=== PATIENT | male | born 1985 | race African-American/Black ===

== ENCOUNTER 2022-05-08 04:28 | Emergency (ER) | payer BC ==
[2022-05-08] MEDS ORDERED: LIDOCAINE 1% 20 ML MDV ONE (04:42)
[2022-05-08] MEDS ORDERED: TETANUS & DIPHTHERIA TOX,ADULT 0.5 ML VIAL ONE (04:49)
[2022-05-08] MEDS ORDERED: CEPHALEXIN 250 MG CAP ONE (05:04)
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
--- NOTE | 2022-05-08 05:04 | EDPHYS ---
Physician Documentation [facility] Name: Guy Rose Age: 37 yrs Sex: Male : 1985 Arrival Date: 05/08/2022 Time: 04:29 Bed 18 Private MD: ED Physician Malcolm Hickey HPI: 05/08 04:56 This 37 yrs old Black Male presents to ER via Ambulatory with complaints of Laceration, david - finger. 04:56 The patient or guardian reports decreased range of motion, a laceration, clean, 1.25 david cm(s), pain. The complaints affect the PIP of right ring finger. Context: The problem was sustained at an unknown location. Onset: The symptoms/episode began/occurred just prior to arrival. Modifying factors: The symptoms are alleviated by elevation, the symptoms are aggravated by movement. Associated signs and symptoms: The patient has no apparent associated signs or symptoms. Severity of symptoms: At their worst the symptoms were mild, in the emergency department the symptoms are unchanged. The patient has not experienced similar symptoms in the past. Historical: - Allergies: 04:44 No Known Allergies; lg3 - Home Meds: 04:44 None [Active]; lg3 - PMHx: 04:44 None; lg3 - PSHx: 04:44 None; lg3 - Immunization history:: Flu vaccine is not up to date. - Social history:: Smoking status: Patient denies any tobacco usage or history of. - Family history:: not pertinent. ROS: 04:56 Constitutional: Negative for fever, chills, and weight loss, Eyes: Negative for injury, david pain, redness, and discharge, ENT: Negative for injury, pain, and discharge, Neck: Negative for injury, pain, and swelling, Cardiovascular: Negative for chest pain, palpitations, and edema, Respiratory: Negative for shortness of breath, cough, wheezing, and pleuritic chest pain, Abdomen/GI: Negative for abdominal pain, nausea, vomiting, diarrhea, and constipation, Back: Negative for injury and pain, : Negative for injury, bleeding, discharge, and swelling, Skin: Negative for injury, rash, and discoloration, Neuro: Negative for headache, weakness, numbness, tingling, and seizure. 04:56 MS/extremity: Positive for decreased range of motion, pain, of the dorsal aspect of middle phalanx of right middle finger. Exam: 04:56 Constitutional: This is a well developed, well nourished patient who is awake, alert, dvaid and in no acute distress. Head/Face: Normocephalic, atraumatic. Eyes: Pupils equal round and reactive to light, extra-ocular motions intact. Lids and lashes normal. Conjunctiva and sclera are non-icteric and not injected. Cornea within normal limits. Periorbital areas with no swelling, redness, or edema. ENT: Nares patent. No nasal discharge, no septal abnormalities noted. Tympanic membranes are normal and external auditory canals are clear. Oropharynx with no redness, swelling, or masses, exudates, or evidence of obstruction, uvula midline. Mucous membranes moist. Neck: Trachea midline, no thyromegaly or masses palpated, and no cervical lymphadenopathy. Supple, full range of motion without nuchal rigidity, or vertebral point tenderness. No Meningismus. Chest/axilla: Normal chest wall appearance and motion. Nontender with no deformity. No lesions are appreciated. Cardiovascular: Regular rate and rhythm with a normal S1 and S2. No gallops, murmurs, or rubs. Normal PMI, no JVD. No pulse deficits. Respiratory: Lungs have equal breath sounds bilaterally, clear to auscultation and percussion. No rales, rhonchi or wheezes noted. No increased work of breathing, no retractions or nasal flaring. Abdomen/GI: Soft, non-tender, with normal bowel sounds. No distension or tympany. No guarding or rebound. No evidence of tenderness throughout. Back: No spinal tenderness. No costovertebral tenderness. Full range of motion. Skin: Warm, dry with normal turgor. Normal color with no rashes, no lesions, and no evidence of cellulitis. Neuro: Awake and alert, GCS 15, oriented to person, place, time, and situation. Cranial nerves II-XII grossly intact. Motor strength 5/5 in all extremities. Sensory grossly intact. Cerebellar exam normal. Normal gait. Psych: Awake, alert, with orientation to person, place and time. Behavior, mood, and affect are within normal limits. 04:56 Musculoskeletal/extremity: ROM: intact in all extremities, full active range of motion, full passive range of motion, Circulation is intact in all extremities. 04:56 Skin: injury, laceration(s), the wound is approximately 1.25 cm(s), with a depth of 0.25 cm(s), of the dorsal aspect of middle phalanx of right middle finger. Vital Signs: 04:40 BP 115 / 65; Pulse 110; Resp 18; Temp 98.8; Pulse Ox 98% on R/A; Weight 85.73 kg; lg3 Height 5 ft. 7 in. (170.18 cm); Pain 0/10; 04:40 Body Mass Index 29.60 (85.73 kg, 170.18 cm) lg3 Laceration: 04:56 Wound Repair of 1.2cm ( 0.5in ) subcutaneous laceration to dorsal aspect of middle david phalanx of right middle finger. Linear shaped.. Distal neuro/vascular/tendon intact. Anesthesia: Local anesthetic administered with 5 mls of 1% lidocaine. Wound prep: Simple cleansing by me. Skin closed with 4 5-0 Prolene using interrupted sutures and sterile technique. Dressed with Neosporin, non-adherent dressing. Patient tolerated well. MDM: 04:33 Patient medically screened. [facility] 05:01 Differential diagnosis: open fracture, contusion, abrasion. Data reviewed: vital signs, [facility] nurses notes. Data interpreted: engine monitor: rate is 110 beats/min, rhythm is regular, Pulse oximetry: on room air is 98 %. Counseling: I had a detailed discussion with the patient and/or guardian regarding: the historical points, exam findings, and any diagnostic results supporting the discharge/admit diagnosis, the need for outpatient follow up, for definitive care, a family practitioner, a hand specialist. 05/08 04:48 Order name: Dressing - Wound; Complete Time: 04:48 3 05/08 04:48 Order name: Gloves, Sterile; Complete Time: 04:48 3 05/08 04:48 Order name: Setup Suture Tray; Complete Time: 04:48 lg3 Administered Medications: 04:46 Drug: Lidocaine (1 %) 5 ml {Note: by provider at bedside.} Volume: 20 ml; Route: lg3 Infiltration; 04:46 Drug: Tetanus Toxoid,Adsorbed 0.5 ml {Candy Polisher: [employer]. Exp: 01/22/2024. Lot lg3 #: [id number]. } Route: IM; Site: left deltoid; 05:07 Follow up: Response: (VIS) Vaccine information sheet provided today. Questions and/or lg3 concerns addressed. VIS edition date: Jun 04, 2021.; No adverse reaction 05:07 Drug: KeFLEX (cephalexin) 500 mg Route: PO; lg3 05:07 Follow up: Response: No adverse reaction lg3 Disposition Summary: 05/08/22 05:03 Discharge Ordered Location: Home [facility] Problem: new david Symptoms: have improved david Condition: Stable david Diagnosis - Laceration without foreign body of right hand, initial encounter - RIGHT MIDDLE david FINGER LACERATION Followup: david - With: Private Physician - When: 2 - 3 days - Reason: Recheck today's complaints, Continuance of care, Re-evaluation by your physician Discharge Instructions: - Discharge Summary Sheet david - Laceration Care, Adult david - Laceration Care, Adult, [id number] Forms: - Medication Reconciliation Form david - Thank You Letter david - Antibiotic Education david - Prescription Opioid Use [facility] Prescriptions: - Cephalexin 500 mg Oral Capsule - take 1 capsule by ORAL route every 6 hours for 7 days; 28 capsule; Refills: 0, david Product Selection Permitted Signatures: Malcolm Hickey MD MD cha Gibson, Lacie RN RN lg3
[2022-05-08 05:14] VITALS: BP 115/65; TEMP 98.8; O2SAT 98
== END 2022-05-08 05:09 | disposition home or self-care (01) ==
LOC: ER 04:28
PROC: 0JQJ0ZZ Repair Right Hand Subcutaneous Tissue and Fascia, Open Approach (ICD-10-PCS; principal; 2022-05-08)
DX: S61.212A Laceration without foreign body of right middle finger without damage to nail, initial encounter (principal); Z23 Encounter for immunization
CPT/HCPCS: 90471; 90714; 99284

== ENCOUNTER 2022-05-17 12:41 | Emergency (ER) | payer BC ==
--- NOTE | 2022-05-17 13:12 | EDPHYS ---
Physician Documentation [facility] Name: Guy Rose Age: 37 yrs Sex: Male : 1985 Arrival Date: 05/17/2022 Time: 12:41 Bed Waiting Private MD: ED Physician Marshal Kenyon Historical: - Allergies: 05/17 13:06 No Known Allergies; hb Vital Signs: 13:05 BP 122 / 89; Pulse 68; Resp 16; Temp 98; Pulse Ox 97% ; Weight 86.18 kg; Height 5 ft. 7 hb in. (170.18 cm); Pain 0/10; 13:05 Body Mass Index 29.76 (86.18 kg, 170.18 cm) hb MDM: 13:10 Patient medically screened. jmm 13:11 Data reviewed: vital signs, nurses notes. jmm Administered Medications: No medications were administered Disposition: 14:11 Co-signature as Attending Physician, Marshal Kenyon DO I was immediately available on-site ms3 in the Emergency Department for consultation in the care of the patient. . Disposition Summary: 05/17/22 13:11 Discharge Ordered Location: Home jmm Condition: Stable jmm Diagnosis - Encounter for removal of sutures jmm Followup: jmm - With: Private Physician - When: As needed - Reason: Recheck today's complaints, Continuance of care, Re-evaluation by your physician Discharge Instructions: - Discharge Summary Sheet jm - Suture Removal, Care After jmm Forms: - Medication Reconciliation Form jmm - Thank You Letter jmm - Antibiotic Education jmm - Work release form jmm - Prescription Opioid Use jm Signatures: Thomas Quinones PA PA jmm Baxter, Heather, RN RN Marshal Kenyon DO DO ms3
--- NOTE | 2022-05-17 13:12 | ER ---
Nurse's Notes [facility] Name: Guy Rose Age: 37 yrs Sex: Male : 1985 Arrival Date: 05/17/2022 Time: 12:41 Bed Waiting Private MD: Diagnosis: Encounter for removal of sutures Presentation: 05/17 13:05 Chief complaint: Right index sutures 10 days ago, here for removal. Coronavirus screen: hb At this time, the client does not indicate any symptoms associated with coronavirus-19. Ebola Screen: No symptoms or risks identified at this time. Risk Assessment: Do you want to hurt yourself or someone else? Patient reports no desire to harm self or others. Onset of symptoms was May 17, 2022. 13:05 Method Of Arrival: Ambulatory hb 13:05 Acuity: EDMOND 4 hb Triage Assessment: 13:06 General: Appears in no apparent distress. Behavior is calm, cooperative. Pain: Denies hb pain. Historical: - Allergies: 13:06 No Known Allergies; hb Vital Signs: 13:05 BP 122 / 89; Pulse 68; Resp 16; Temp 98; Pulse Ox 97% ; Weight 86.18 kg; Height 5 ft. 7 hb in. (170.18 cm); Pain 0/10; 13:05 Body Mass Index 29.76 (86.18 kg, 170.18 cm) hb ED Course: 12:41 Patient arrived in ED. as 12:43 Marshal Kenyon DO is Attending Physician. ms3 13:06 Triage completed. hb 13:06 Arm band placed on. hb 13:10 Thomas Quinones [facility] is [facility] jeanie Administered Medications: No medications were administered Outcome: 13:11 Discharge ordered by MD. ware 13:36 Patient left the ED. hb Signatures: Thomas Quinones PA PA jmm Martinez, Amelia as Baxter, Heather, NORM RN Marshal Kenyon DO DO ms3
[2022-05-17 13:48] VITALS: BP 122/89; TEMP 98; O2SAT 97
--- OUTSIDE RECORDS SUMMARY | 2022-05-19 14:15 | XMS REPORT | Continuity of Care Document ---
:1985 Author Organization [facility] t Address [address] [place] [address] Care Team Providers Name Role Phone [email or web address] Attending Clinician Unavailable Problems Condition Condition Condition Status Onset Resolution Last Treating Co mments Source Name Details Category Date Date Treatment Clinician Date Skin Skin Diagnosis Active Common lesion lesion [facility] Elevated Elevated Problem Active Commo n BP without BP without Sp rayshawn diagnosis diagnosis - [facility] hypertensi [facility]ensi [facility] Allergies, Adverse Reactions, Alerts This patient has no known allergies or adverse reactions. Medications Ordered Filled Start Stop Current Ordering Indication Dosage Frequency Signature Comments Components Source Medication Medication Date Date Medication? Clinician (SIG) Name Name Mupirocin Mupirocin 2019- No Janine 1 Common 03-18 Daniel applicatio [facility] 00:00: 00:00 n to - [facility] 00 :00 affected [facility] Procedures This patient has no known procedures. Encounters Start End Encounter Admission Attending Care Care Encounter Source Date/Time Date/Time Type Type Clinicians Facility Department ID 2022-03-16 Outpatient Mariama [facility] [id number] Common 16:19:02 Erika hurtado [facility] 2021-11-24 Outpatient Se [facility] [id number] Common 11:58:44 Erika [facility] 2020-03-18 2020-03-18 Outpatient Minerva Deshpande [id number] Common 16:20:00 16:20:00 [facility] it [facility] Medicine [facility] 2019-08-30 2019-08-30 Outpatient Minerva Deshpande [id number] Common 16:40:00 16:40:00 t [facility] Results This patient has no known results.
== END 2022-05-17 13:36 | disposition home or self-care (01) ==
LOC: ER 12:41
DX: Z48.02 Encounter for removal of sutures (principal)
CPT/HCPCS: 99281

== ENCOUNTER 2023-08-21 19:49 | Emergency (ER) | payer BC ==
--- OUTSIDE RECORDS SUMMARY | 2023-08-21 19:52 | XMS REPORT | Continuity of Care Document ---
:1985 Author Organization [facility] t Address [address] [place] [address] Care Team Providers Name Role Phone Erika Guzman Attending Clinician Unavailable Problems Condition Condition Condition Status Onset Resolution Last Treating Co mments Source Name Details Category Date Date Treatment Clinician Date Elevated Elevated Problem Active Commo n BP without BP without Sp rayshawn diagnosis diagnosis - [facility] I of of hypertensi hypertensi Roshni kes on on [facility] Skin Skin Diagnosis Active Common lesion lesion [facility] Allergies, Adverse Reactions, Alerts This patient has no known allergies or adverse reactions. Medications Ordered Filled Start Stop Current Ordering Indication Dosage Frequency Signature Comments Components Source Medication Medication Date Date Medication? Clinician (SIG) Name Name Mupirocin Mupirocin 2019- No Janine 1 Common 03-18 Daniel applicatio [facility] 00:00: 00:00 n to [facility] 00 :00 affected [facility] Procedures This patient has no known procedures. Encounters Start End Encounter Admission Attending Care Care Encounter Source Date/Time Date/Time Type Type Clinicians Facility Department ID 2022-07-26 Outpatient Mariama [facility] [id number] - Common 08:56:00 Erika hurtado [facility] 2022-03-16 Outpatient Mariama [facility] [id number] - Common 16:19:02 Erika hurtado [facility] 2021-11-24 Outpatient Se [facility] [id number] Common 11:58:44 Erika [facility] 2020-03-18 2020-03-18 Outpatient Augustinecelso [facility] [id number] Common 16:20:00 16:20:[address] [facility] 2019-08-30 2019-08-30 Outpatient Minerva Deshpande [id number] Common 16:40:00 16:40:00 [facility] it [facility] Results This patient has no known results.
--- NOTE | 2023-08-21 20:56 | RAD REPORT ---
EXAM DESCRIPTION: Vick Lopez Left08/21/2023 8:43 pm CLINICAL HISTORY: Left leg pain FINDINGS: No fracture is seen No bony lesion noted
--- NOTE | 2023-08-21 21:45 | RAD REPORT ---
[facility] [employer]2023 9:22 pm CLINICAL HISTORY: left leg pain COMPARISON: None FINDINGS: Left common femoral, superficial femoral, greater saphenous, popliteal and posterior tibi al veins are compressible and demonstrate augmentation. Doppler demonstrates good flow. Grayscale, color and spectral analysis performed on all vessels IMPRESSION: No evidence of deep venous thrombosis involving the left lower extremity.
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
--- NOTE | 2023-08-21 21:51 | ER ---
Nurse's Notes [facility] Name: Guy Rose Age: 38 yrs Sex: Male : 1985 Arrival Date: 08/21/2023 Time: 19:49 Bed DIS3 Private MD: Diagnosis: Pain in left lower leg Presentation: 08/21 20:16 Chief complaint: Patient states: left leg pain onset yesterday. Pt states that he cm10 jumped off the bed of his truck and the pain started. Pt states that the pain starts in his knee and radiates down his leg. Coronavirus screen: Vaccine status: Patient reports receiving the 2nd dose of the covid vaccine. Client denies travel out of the [place] in the last 14 days. Ebola Screen: Patient denies travel to an Ebola-affected area in the 21 days before illness onset. No symptoms or risks identified at this time. Initial Sepsis Screen: Does the patient meet any 2 criteria? No. Patient's initial sepsis screen is negative. Does the patient have a suspected source of infection? No. Patient's initial sepsis screen is negative. Risk Assessment: Do you want to hurt yourself or someone else? Patient reports no desire to harm self or others. Onset of symptoms was August 21, 2023. 20:16 Method Of Arrival: Wheelchair cm10 20:16 Acuity: EDMOND 4 cm10 Triage Assessment: 20:17 General: Appears in no apparent distress. comfortable, Behavior is calm, cooperative. cm10 Historical: - Allergies: 20:17 No Known Allergies; cm10 - Home Meds: 20:17 None [Active]; cm10 - PMHx: 20:17 None; cm10 - PSHx: 20:17 None; cm10 - Immunization history:: Adult Immunizations unknown. - Social history:: Smoking status: Patient reports the use of cigarette tobacco products, denies chronic smoking, but will smoke occasionally. Screenin:05 [facility] ED Fall Risk Assessment (Adult) History of falling in the last 3 months, kl including since admission No falls in past 3 months (0 pts) Confusion or Disorientation No (0 pts) Intoxicated or Sedated No (0 pts) Impaired Gait Yes (1 pt) Mobility Assist Device Used No (0 pt) Altered Elimination No (0 pt) Score/Fall Risk Level 0 - 2 = Low Risk Oriented to surroundings, Maintained a safe environment. Abuse screen: Denies threats or abuse. Nutritional screening: No deficits noted. Tuberculosis screening: No symptoms or risk factors identified. Assessment: 22:04 General: Appears uncomfortable. Pain: Complains of pain in left leg and left alcala and kl left knee and left calf Pain currently is 8 out of 10 on a pain scale. Neuro: No deficits noted. Cardiovascular: No deficits noted. Respiratory: No deficits noted. GI: No deficits noted. No signs and/or symptoms were reported involving the gastrointestinal system. : No deficits noted. No signs and/or symptoms were reported regarding the genitourinary system. Musculoskeletal: No deficits noted. Vital Signs: 20:16 BP 142 / 88; Pulse 94; Resp 18; Temp 98.7(TE); Pulse Ox 99% ; Weight 81.65 kg (R); cm10 Height 5 ft. 7 in. ; Pain 6/10; 22:04 BP 134 / 81; Pulse 81; Resp 18; kl 20:16 Body Mass Index 28.19 (81.65 kg, 170.18 cm) cm10 20:16 Pain Scale: Adult cm10 ED Course: 19:50 Patient arrived in ED. ag3 20:11 Hanna Kirkland FNP-C [facility]. kb 20:11 Walter Mcgowan MD is Attending Physician. kb 20:17 Triage completed. cm10 20:17 Arm band placed on Patient placed in waiting room. cm10 20:45 Tib Fib Left XRAY In Process Unspecified. EDMS 21:24 US Extremity Venous Unilateral Ltd In Process Unspecified. EDMS 22:05 No provider procedures requiring assistance completed. Patient did not have IV access kl during this emergency room visit. Administered Medications: 22:03 Drug: Hydrocodone-Acetaminophen PO (7.5 mg-325 mg) 1 tabs PO once Route: PO; kl 22:03 Follow up: Response: No adverse reaction kl Medication: 22:05 VIS not applicable for this client. kl Outcome: 21:51 Discharge ordered by . kb 22:05 Discharged to home via wheelchair, with family, kl 22:05 Condition: stable 22:05 Discharge instructions given to patient, Instructed on discharge instructions, follow up and referral plans. medication usage, Demonstrated understanding of instructions, follow-up care, medications, Prescriptions given X 2, 22:05 Patient left the ED. kl Signatures: Dispatcher [employer] Hanna Morales, PHARMACY CARE COORDINATOR-C PHARMACY CARE COORDINATOR-Yaz Smith, RN RN Nirmala Quan Clarissa, RN RN cm10
[2023-08-21] MEDS ORDERED: HYDROCODONE/APAP 7.5/325 MG TAB ONE (22:14)
== END 2023-08-21 22:05 | disposition home or self-care (01) ==
LOC: ER 19:49
DX: M79.662 Pain in left lower leg (principal); F17.210 Nicotine dependence, cigarettes, uncomplicated
CPT/HCPCS: 93971; 99283

== ENCOUNTER 2024-12-22 20:03 | Emergency (ER) | payer SELFPAY, OTHER ==
[2024-12-22] MEDS ORDERED: KETOROLAC 30 MG/ML INJ ONE (20:29)
[2024-12-22] MEDS ORDERED: NA CHLORIDE 0.9% 1,000 ML ONE (20:29)
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
[2024-12-22 21:17] LABS: Absolute Basophils 0.1 K/uL (0-0.5); Absolute Lymphocytes (CBC) 1.2 K/uL (0.7-4.9); Absolute Monocytes 0.5 K/uL (0.1-1.3); Absolute Neutrophil 4.8 K/uL (1.8-8.0); Basophils % 0.8 % (0-1.3); Eosinophils % 0.6 % (0-4.4); Hematocrit 41.5 % (39.6-49.0); Hemoglobin 14.2 g/dL (13.6-17.9); Lymphocytes % 18.3 % (15.3-44.8); MCH 31.8 pg (27.0-35.0); MCHC 34.3 g/dL (32.0-36.0); MCV 92.8 fL (80-100); MPV 7.7 fL (7.6-11.3); Monocytes % 7.2 % (3.3-12.3); Neutrophils % 73.1 % (41.7-73.7); Nucleated Red Blood Cells % 0.1 % (0-0); Platelets 293 thou/uL (152-406); RBC Red Blood Cell Count 4.47 M/uL (4.33-5.43); Red Cell Distribution Width 12.4 % (12.1-15.2)
[2024-12-22 21:43] LABS: Anion Gap 13.5 mEq/L (5.0-15.0); Magnesium 1.9 mg/dL (1.6-2.4); Potassium 3.5 mEq/L (3.5-5.1)
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
[2024-12-22 22:29] VITALS: TEMP 98.2
[2024-12-22 22:32] VITALS: BP 119/78; O2SAT 99
== END 2024-12-22 22:24 | disposition home or self-care (01) ==
LOC: ER 20:03
DX: S43.492A Other sprain of left shoulder joint, initial encounter (principal); E11.65 Type 2 diabetes mellitus with hyperglycemia; R03.0 Elevated blood-pressure reading, without diagnosis of hypertension; V59.49XA Driver of pick-up truck or van injured in collision with other motor vehicles in traffic accident, initial encounter
CPT/HCPCS: 36415; 70450; 71250; 72125; 74176; 80048; 82077; 83735; 85025; 96361; 96374; 99284; J7030

== ENCOUNTER 2025-07-30 21:17 | Observation (INO) | payer OTHER ==
[2025-07-30] MEDS ORDERED: KETOROLAC 30 MG/ML INJ ONE (22:30)
[2025-07-30] MEDS ORDERED: ACETAMINOPHEN 500 MG TAB ONE (22:30)
[2025-07-30 22:48] LABS: Absolute Lymphocytes (CBC) 2.0 K/uL (0.7-4.9); Hematocrit 38.1 % (39.6-49.0); Hemoglobin 13.4 g/dL (13.6-17.9); MCH 31.5 pg (27.0-35.0); MCHC 35.3 g/dL (32.0-36.0); MCV 89.4 fL (80-100); MPV 7.2 fL (7.6-11.3); Nucleated RBC Absolute Count 0.0 (0-0); Nucleated Red Blood Cells % 0.1 % (0-0); RBC Red Blood Cell Count 4.26 M/uL (4.33-5.43); White Blood Count 6.10 thou/uL (4.3-10.9)
[2025-07-30 23:18] LABS: Anion Gap 11.5 mEq/L (5.0-15.0); BUN Blood Urea Nitrogen 7.0 mg/dL (7-18); Influenza A Ag Negative; Influenza B Ag Negative; Potassium 3.5 mEq/L (3.5-5.1); SARS-CoV-2 Antigen Rapid Res Negative (Negative)
[2025-07-30 23:20] LABS: Glucose Level 493.0 mg/dL (74-106)
[2025-07-30 23:43] LABS: Blood Morphology Comment NOT SEEN (NOT SEEN); Differential Total Cells Count 100; Segmented Neutrophils 47 % (40-80)
[2025-07-31] MEDS ORDERED: CEFTRIAXONE 2000 MG/VIAL ONE (00:29)
[2025-07-31] MEDS ORDERED: INSULIN REGULAR (HUMAN) 100 UNIT/ML ONE ×3 (00:29→11:23)
[2025-07-31] MEDS ORDERED: NA CHLORIDE 0.9% 2,000 ML ONE (00:30)
[2025-07-31] MEDS ORDERED: ONDANSETRON 4 MG/2 ML VIAL ONE (00:54)
--- NOTE | 2025-07-31 01:16 | RAD REPORT ---
EXAM: CT Head With Intravenous Contrast CLINICAL HISTORY: scalp abscess TECHNIQUE: Axial computed tomography images of the head/brain with intravenous contrast. Sagittal and coronal reformatted images were created and reviewed. This CT exam was performed using one or more of the following dose reduction techniques: automated exposure control, adjustment of the mA and/or kV acc ording to patient size, and/or use of iterative reconstruction technique. COMPARISON: CT Head dated 12/22/2024 FINDINGS: Brain: Unremarkable. No hemorrhage. No edema. Normal enhancement. Ventricles: Unremarkable. No ventriculomegaly. Bones/joints: Unremarkable. No acute fracture. Soft tissues: Unremarkable. No discrete soft tissue/scalp abscess. Sinuses: Mild bilateral maxillary, ethmoid and right frontal sinus mucosal thickening. Mastoid air cells: Unremarkable as visualized. No mastoid effusion. IMPRESSION: 1. No acute intracranial or extracranial abnormality. 2. No discrete soft tissue/scalp abscess. Electronically signed by: Destiny Roberts MD 07/31/2025 01:09 AM CDT RP Due to temporary technical issues with the [employer] reporting system, reports are being etienne d by the in-house radiologist without review as a courtesy to ensure prompt reporting the interpreting radiologist is fully responsible for the content of the report. Transcribed Date/Time: 07/31/2025 1:15 AM
--- NOTE | 2025-07-31 02:05 | ER ---
Nurse's Notes [facility] Name: Guy Rose Age: 40 yrs Sex: Male : 1985 Arrival Date: 07/30/2025 Time: 21:17 Bed 19 Private MD: Diagnosis: Bandemia Presentation: 07/30 21:42 Chief complaint: Patient states: STUNG BY WASP IN THE BACK OF THE HEAD LAST MONDAY dd2 AND SINCE HAS BEEN RUNNING A FEVER, COUGH AND TIRED SINCE. ALSO REPORTS LT KNEE PAIN AND SWELLING FROM RUNNING AFTER THE WASP STING. Coronavirus screen: cough unrelated to allergies, fatigue, fever, muscle pain. Ebola Screen: No symptoms or risks identified at this time. Onset: The symptoms/episode began/occurred 1 week(s) ago. Anaphylaxis evaluation, no signs or symptoms of anaphylaxis were noted. Initial Sepsis Screen: Does the patient meet any 2 criteria? No. Patient's initial sepsis screen is negative. Does the patient have a suspected source of infection? No. Patient's initial sepsis screen is negative. Risk Assessment: Do you want to hurt yourself or someone else? Patient reports no desire to harm self or others. Onset of symptoms was July 24, 2025. 21:42 Method Of Arrival: Ambulatory dd2 21:42 Acuity: EDMOND 3 dd2 Triage Assessment: 21:48 General: Appears in no apparent distress. uncomfortable, Behavior is calm, cooperative, dd2 appropriate for age. Pain: Complains of pain in left knee, HEAD. Respiratory: Reports cough that is Airway is patent Respiratory effort is even, unlabored, Respiratory pattern is regular, symmetrical. Musculoskeletal: Reports pain in left knee. Historical: - Allergies: 21:48 No Known Allergies; dd2 - PMHx: 21:48 Diabetes mellitus; dd2 - PSHx: 21:48 Appendectomy; dd2 - Immunization history:: Adult Immunizations unknown. - Infectious Disease History:: Denies. - Social history:: Smoking status: Reported history of juuling and/or vaping. Screenin:35 [facility] ED Fall Risk Assessment (Adult) History of falling in the last 3 months, jj7 including since admission No falls in past 3 months (0 pts) Confusion or Disorientation No (0 pts) Intoxicated or Sedated No (0 pts) Impaired Gait No (0 pts) Mobility Assist Device Used No (0 pt) Altered Elimination No (0 pt) Score/Fall Risk Level 0 - 2 = Low Risk Oriented to surroundings, Maintained a safe environment, Educated pt \T\ family on fall prevention, incl call for assistance when getting out of bed, Assessed \T\ reinforced patient's understanding of fall precautions. Abuse screen: Denies threats or abuse. Nutritional screening: No deficits noted. Tuberculosis screening: No symptoms or risk factors identified. Assessment: 22:35 Reassessment: ASSUMED CARE OF PT. PT LYING IN BED. NO DISTRESS NOTED. VS STABLE. jj7 General: Appears in no apparent distress. uncomfortable, Behavior is calm, cooperative, appropriate for age. Pain: Complains of pain in left knee. Neuro: Reports headache. Cardiovascular: No deficits noted. Respiratory: Airway is patent Respiratory effort is even, unlabored, Respiratory pattern is regular, symmetrical, Breath sounds are clear bilaterally. GI: No deficits noted. : No deficits noted. EENT: No deficits noted. Derm: No deficits noted. Musculoskeletal: No deficits noted. Vital Signs: 21:42 BP 112 / 70; Pulse 97; Resp 16; Temp 99.1(O); Pulse Ox 97% on R/A; Weight 77.11 kg; dd2 Pain 8/10; 22:35 BP 115 / 71; Pulse 80; Resp 20; Pulse Ox 98% ; jj7 23:30 BP 120 / 73; Pulse 84; Resp 20; Pulse Ox 96% ; jj7 07/31 00:31 BP 131 / 71; Pulse 68; Resp 20; Temp 96; jj7 01:30 BP 111 / 56; Pulse 71; Resp 20; Pulse Ox 95% ; jj7 02:30 BP 113 / 68; Pulse 77; Resp 18; Pulse Ox 98% ; jj7 07/30 21:42 Pain Scale: Adult dd2 ED Course: 07/30 21:24 Patient arrived in ED. sj2 21:41 Franklin Loaiza DO is Attending Physician. dd2 21:48 Triage completed. dd2 21:48 Arm band placed on left wrist. dd2 22:29 Austin Rogers RN is Primary Nurse. jj7 22:34 COVID-19 Ag + Flu A+B Ag Sent. ts3 22:34 Initial lab(s) drawn, by animal laboratory technician, sent to lab. Inserted saline lock: 18 gauge in right ts3 antecubital area, using aseptic technique. Blood collected. Flushed with 10 mL NS. 22:35 Patient has correct armband on for positive identification. Bed in low position. Call jj7 light in reach. Side rails up X 1. Adult w/ patient. Provided Education on: USE OF CALL SAAB. Client placed on continuous cardiac and pulse oximetry monitoring. NIBP monitoring applied. Warm blanket given. 22:41 BMP Sent. jj7 22:41 CBC with Diff Sent. jj7 22:41 COVID-19 Ag + Flu A+B Ag Sent. jj7 07/31 00:40 CT Head Brain w Cont In Process Unspecified. EDMS 01:02 Notified ED physician of a critical lab result(s). LACTIC ACID 2.3. br2 02:04 Neo Elliott, RN is Hospitalizing Provider. tt7 02:51 UA Rfx Papo Cult if indicated Sent. jj7 02:59 Door closed. Noise minimized. Lights dimmed. jj7 03:30 Report given to TOMMIE ZHENG. jj7 14:05 Patient admitted, IV remains in place. ar8 Administered Medications: 07/30 22:41 Drug: Acetaminophen PO 1000 mg PO once Route: PO; jj7 07/31 00:16 Follow up: Response: Marked relief of symptoms; Temperature is decreased; Pain is jj7 decreased 07/30 22:41 Drug: Ketorolac IVP 15 mg IVP once Route: IVP; Site: right antecubital; jj7 07/31 00:16 Follow up: Response: Marked relief of symptoms; Temperature is decreased; Pain is jj7 decreased 00:36 Not Given (Other Intervention Used): insulin lispro5 units Sub-Q once tt7 00:45 Drug: NS 0.9% IV (30 ml/kg) 30 ml/kg IV at bolus once; Sepsis Protocol; to be given as jj7 a bolus over 90 minutes Route: IV; Rate: bolus; Site: right antecubital; 06:18 Follow up: IV Status: Completed infusion cp4 00:45 Drug: Rocephin IV 2 grams IV at bolus once; Given slow IV push per pharmarcy jj7 instructions Route: IV; Rate: bolus; Site: right antecubital; 01:19 Follow up: IV Status: Completed infusion jj7 00:57 Drug: Ondansetron IVP 4 mg IVP once; over 2 minutes Route: IVP; Site: right antecubital;jj7 01:19 Follow up: Response: Nausea is decreased j7 01:05 Drug: Insulin Regular Human Sub-Q 5 units Sub-Q once {Co-Signature: br2 (yoanna Kent RN).} Route: Sub-Q; Site: abdomen; 02:58 Follow up: Response: Marked relief of symptoms 7 Medication: 07/30 22:35 VIS not applicable for this client. jj7 Point of Care Testing: Blood Glucose: 07/31 01:59 Blood Glucose: 404 mg/dL; jj7 Ranges: Outcome: 02:04 Decision to Hospitalize by Provider. tt7 14:05 Admitted to Med/surg accompanied by tech, via wheelchair, room 225, Report called to ar8 sent to second floor 14:05 Condition: stable 14:05 Discharge instructions given to N/A 14:11 Patient left the ED. ar8 Signatures: Dispatcher [employer] EDMS Austin Rogers RN RN jj7 Anamika Ely cpNadia Burns RN RN br2 HEMAL TONG RN RN dd2 Antionette Reyes 2 Serena Watt 3 Reg Celis RN RN ar8 Franklin Loaiza, DO DO tt7 Nadia Kent RN br2
--- NOTE | 2025-07-31 02:05 | EDPHYS ---
Physician Documentation [facility] Name: Guy Rose Age: 40 yrs Sex: Male : 1985 Arrival Date: 07/30/2025 Time: 21:17 Bed 19 Private MD: ED Physician Franklin Loaiza HPI: 07/31 04:05 This 40 yrs old Black Male presents to ER via Ambulatory with complaints of Fever. tt7 04:06 Symptoms started last after he was stung in the back of the head by a wasp, he tt7 reports he has been having intermittent fevers and night sweats, generalized fatigue. Not really having any other symptoms. Past medical history includes diabetes. Was previously on insulin but this was discontinued and he has now been taking metformin. Historical: - Allergies: 07/30 21:48 No Known Allergies; dd2 - PMHx: 21:48 Diabetes mellitus; dd2 - PSHx: 21:48 Appendectomy; dd2 - Immunization history:: Adult Immunizations unknown. - Infectious Disease History:: Denies. - Social history:: Smoking status: Reported history of juuling and/or vaping. ROS: 07/31 04:07 Constitutional: Positive for fever. Cardiovascular: negative for chest pain. tt7 Respiratory: negative for shortness of breath. Abdomen/GI: negative for abdominal pain, nausea, vomiting, diarrhea. MS/Extremity: negative for injury and deformity. Skin: negative for rash. Neuro: negative for focal weakness. Exam: 04:07 Constitutional: vital signs reviewed, well appearing. Head/Face: normocephalic, tt7 atraumatic. Eyes: no conjunctival injection, anicteric sclerae. ENT: mucus membranes moist. Neck: trachea midline, no JVD, no meningismus. Chest/axilla: normal chest wall appearance and motion, nontender, no crepitus. Cardiovascular: regular rate and rhythm, no murmurs, no rubs, no lower extremity edema. Respiratory: normal respiratory effort, no accessory muscle use, lungs CTAB. Abdomen/GI: soft, nondistended, nontender, no guarding or rebound, negative Arnold's sign, no McBurney point tenderness. Back: normal ROM. Skin: warm, dry, intact, normal turgor, normal color, no rash. MS/ Extremity: normal ROM of extremities, no gross deformities. Neuro: alert and oriented with appropriate mental status, normal speech, follows commands, no focal neurologic deficits. Psych: appropriate mood and affect. Vital Signs: 07/30 21:42 BP 112 / 70; Pulse 97; Resp 16; Temp 99.1(O); Pulse Ox 97% on R/A; Weight 77.11 kg; dd2 Pain 8/10; 22:35 BP 115 / 71; Pulse 80; Resp 20; Pulse Ox 98% ; jj7 23:30 BP 120 / 73; Pulse 84; Resp 20; Pulse Ox 96% ; jj7 07/31 00:31 BP 131 / 71; Pulse 68; Resp 20; Temp 96; jj7 01:30 BP 111 / 56; Pulse 71; Resp 20; Pulse Ox 95% ; jj7 02:30 BP 113 / 68; Pulse 77; Resp 18; Pulse Ox 98% ; jj7 07/30 21:42 Pain Scale: Adult dd2 MDM: 07/30 21:46 Medical Screening Exam initiated tt7 07/31 04:07 Differential diagnosis: Sepsis, acute cystitis, scalp abscess, hyperglycemia, diabetic tt7 ketoacidosis, acute renal failure, anemia. Data reviewed: vital signs, nurses notes, lab test result(s), radiologic studies. Counseling: I had a detailed discussion with the patient and/or guardian regarding the historical points, exam findings, and any diagnostic results supporting the discharge/admit diagnosis, lab results, radiology results, the need for further work-up and treatment in the hospital. ED course: 40-year-old male with fevers and weakness after being stung by a wasp on the back of the head, vital signs are overall stable, physical exam is reassuring, workup was initiated to include basic laboratory studies, this showed no significant leukocytosis but differential noted a bandemia with 14% bands, no obvious source of infection but has bandemia somewhat concerning, blood cultures and lactate ordered as well as urinalysis to look for source of infection, lungs are clear and patient not having productive cough so do not suspect pneumonia, IV fluid bolus ordered as well as empiric ceftriaxone, I ordered CT imaging of the head with contrast to assess for potential scalp abscess at the site of where patient was stung by the wasp, this was negative for any acute findings, patient also has significant hyperglycemia with no ketoacidosis, he was given subcutaneous regular insulin here in the emergency department, overall I discussed the results of the workup with the patient and recommended admission for results of blood cultures and identification of his potential infectious source given his bandemia, I discussed the case with hospitalist Neo Elliott regarding the patient's clinical presentation, laboratory findings, and imaging findings, he accepts the patient for inpatient admission. 07/30 21:49 Order name: CBC with Diff; Complete Time: 23:50 tt7 07/30 21:49 Order name: COVID-19 Ag + Flu A+B Ag; Complete Time: 23:25 tt7 07/30 21:49 Order name: BMP; Complete Time: 23:25 tt7 07/30 22:52 Order name: Manual Differential; Complete Time: 23:50 EDMS 07/31 00:00 Order name: Blood Culture Adult (2) tt7 07/31 00:00 Order name: Lactate w/ 2H reflex if indic.; Complete Time: 01:12 tt7 07/31 01:14 Order name: Ghost Lactate-NO COLLECT Timer; Complete Time: 03:30 EDMS 07/31 01:42 Order name: UA Rfx Papo Cult if indicated; Complete Time: 03:30 tt7 07/31 02:10 Order name: Glucose, Ancillary Testing; Complete Time: 03:30 EDMS 07/31 04:14 Order name: Lactate Sepsis 2 HR Follow-up; Complete Time: 04:14 EDMS 07/31 07:45 Order name: Glucose, Ancillary Testing EDMS 07/31 11:28 Order name: Glucose, Ancillary Testing EDMS 07/31 00:01 Order name: CT Head Brain w Cont; Complete Time: 01:24 tt7 07/31 05:13 Order name: RAD; Complete Time: 05:15 EDMS 07/31 05:14 Order name: RAD; Complete Time: 05:15 EDMS 07/30 21:49 Order name: Labs collected and sent; Complete Time: 22:34 tt7 07/30 21:49 Order name: O2 Per Protocol; Complete Time: 22:41 tt7 07/30 21:49 Order name: O2 Sat Monitoring; Complete Time: 22:37 tt7 07/30 21:49 Order name: Vital Signs; Complete Time: 22:41 tt7 07/31 00:01 Order name: Cardiac monitoring; Complete Time: 00:58 tt7 07/31 01:43 Order name: Glucose Level; Complete Time: tt7 Administered Medications: 07/30 22:41 Drug: Acetaminophen PO 1000 mg PO once Route: PO; jj7 07/31 00:16 Follow up: Response: Marked relief of symptoms; Temperature is decreased; Pain is jj7 decreased 07/30 22:41 Drug: Ketorolac IVP 15 mg IVP once Route: IVP; Site: right antecubital; jj7 07/31 00:16 Follow up: Response: Marked relief of symptoms; Temperature is decreased; Pain is jj7 decreased 00:36 Not Given (Other Intervention Used): insulin lispro5 units Sub-Q once tt7 00:45 Drug: NS 0.9% IV (30 ml/kg) 30 ml/kg IV at bolus once; Sepsis Protocol; to be given as jj7 a bolus over 90 minutes Route: IV; Rate: bolus; Site: right antecubital; 06:18 Follow up: IV Status: Completed infusion cp4 00:45 Drug: Rocephin IV 2 grams IV at bolus once; Given slow IV push per [facility] jj7 instructions Route: IV; Rate: bolus; Site: right antecubital; 01:19 Follow up: IV Status: Completed infusion jj7 00:57 Drug: Ondansetron IVP 4 mg IVP once; over 2 minutes Route: IVP; Site: right antecubital;jj7 01:19 Follow up: Response: Nausea is decreased jj7 01:05 Drug: Insulin Regular Human Sub-Q 5 units Sub-Q once {Co-Signature: yoanna Leigh RN).} Route: Sub-Q; Site: abdomen; 02:58 Follow up: Response: Marked relief of symptoms jj7 Point of Care Testing: Blood Glucose: 01:59 Blood Glucose: 404 mg/dL; jj7 Ranges: Critical Glucose Levels:Adult <50 mg/dl or >400 mg/dl <40 mg/dl or >180 mg/dl Disposition: 04:11 Co-signature as Attending Physician, Franklin Loaiza DO. tt7 Disposition Summary: 07/31/25 02:04 Hospitalization Ordered Notes: Hospitalization Status: Inpatient Admission tt7 Provider: Neo Elliott tt7 Condition: Stable tt7 Problem: new tt7 Symptoms: are unchanged tt7 Bed/Room Type: Standard tt7 Location: Telemetry/MedSurg (Inpatient)(07/31/25 13:20) dw Room Assignment: 225(07/31/25 13:27) dw Diagnosis - Bandemia tt7 Forms: - Medication Reconciliation Form tt7 - SBAR form tt7 - Leadership Thank You Letter tt7 Signatures: Dispatcher [employer] EDMS Melida Snowden, RN RN dw Doris Dozier, NORM RN kb3 Austin Rogers, RN RN jj7 Rosemary Vaca rv1 Lauryn Barnes bc6 MELIDA TONG, RN RN dd2 Franklin Loaiza, DO tt7 Anamika Ely cp4 Nadia Kent RN br2 Corrections: (The following items were deleted from the chart) 07/30 21:50 21:50 CBC+H.LAB.BRZ ordered. EDMS EDMS 21:50 21:50 COVID-19 Ag + Flu A+B Ag+I.LAB.BRZ ordered. EDMS EDMS 21:50 21:50 BASIC METABOLIC PANEL+C.LAB.BRZ ordered. EDMS EDMS 07/31 00:01 00:01 BLOOD CULTURE*+BA.LAB.BRZ ordered. EDMS EDMS 00:01 00:01 LACTATE+C.LAB.BRZ ordered. EDMS EDMS 00:01 00:01 Head Brain W Cont+CT.RAD.BRZ ordered. EDMS EDMS 03:36 02:04 Telemetry/MedSurg (Inpatient) tt7 rv1 03:36 02:04 tt7 rv1 07:34 03:36 [facility] ER HOLD rv1 bc6 07:34 03:36 ERHOLD- rv1 bc6 08:11 07:34 Telemetry/MedSurg (observation) bc6 dw 08:11 07:34 401 bc6 dw 08:11 08:11 [facility] ER HOLD dw bc6 08:11 08:11 dw bc6 11:34 08:11 bc6 kb3 13:20 08:11 [facility] ER HOLD bc6 dw 13:20 11:34 ERHOLD- kb3 dw 13:27 13:20 220 dw dw
--- NOTE | 2025-07-31 02:44 | P.HP ---
Certification for Inpatient Patient admitted to: Inpatient With expected LOS: >2 Midnights Patient will require the following post-hospital care: None Practitioner: I am a practitioner with admitting privileges, knowledge of patient current condition, hospital course, and medical plan of care. Services: Services provided to patient in accordance with Admission requirements found in Title 42 Section 412.3 of the Code of Federal Regulations <Neo Elliott - Last Filed: 07/31/25 03:05> Patient History Date of Service: 07/31/25 Reason for admission: Sepsis due to wasp sting. History of Present Illness: Patient is a pleasant 40-year-old male recently diagnosed with type 2 diabetes mellitus, who presents to the ER tonight complaining of generalized weakness, and fever. Patient states about a week ago he had a wasp sting on the left side of his head, states after the incident that happened on of last week in the afternoon, states he started having fever same day in the evening. Patient states he have had fever since that day that he got stung, states his highest temperature has been 102 F. Patient states he has been coughing as well nonproductive, also complaining of left knee pain after sustaining an injury about a week ago. Denies of associated chest pain, shortness of breath, nausea or vomiting, or abdominal pain. Workup in the ER initial lactic acid 2.3 and bandemia of 14, and febrile in the ER. Patient serum glucose 493. Workup in the ER. (1) CT head with intravenous contrast. Impression: (a) no acute intracranial or extracranial abnormality. (2) no discrete soft tissue/scalp abscess. Home medications list reviewed: No - Past Medical/Surgical History -: Type 2 diabetes mellitus. -: Appendectomy. - Family History Mother -: Diabetes Father -: Hypertension, Diabetes - Social History Smoking Status: Current every day smoker (Patient does not smoke cigarettes but he vapes.) Patient receptive to therapy: Yes Alcohol use: Yes CD- Drugs: No Caffeine use: No Place of Residence: Home <Neo Elliott - Last Filed: 07/31/25 03:05> Date of Service: 07/31/25 <Emma Ott - Last Filed: 08/04/25 12:38> Allergies No Known Allergies Allergy (Unverified 04/19/13 20:13) Review of Systems 10-point ROS is otherwise unremarkable General: Fever, Weakness <Neo Elliott - Last Filed: 07/31/25 03:05> Physical Examination - Physical Exam General: Alert, In no apparent distress, Oriented x3, Cooperative HEENT: Atraumatic, Normocephalic, PERRLA, Mucous membr. moist/pink, Sclerae nonicteric Neck: Supple, 2+ carotid pulse no bruit, No Thyromegaly, No LAD, Without JVD or thyroid abnormality Respiratory: Clear to auscultation bilaterally, Normal air movement Cardiovascular: No edema, Normal pulses, Regular rate/rhythm, Normal S1 S2, Abnormal S3, No gallops, No rubs, No murmurs Capillary refill: <2 Seconds Gastrointestinal: Normal bowel sounds, Soft and benign, Non-distended, W/out hepatomegaly, No ascites, No tenderness, No masses, No rebound, No guarding Musculoskeletal: No clubbing, No swelling, No contractures, No erythema, No tenderness, No warmth Integumentary: No rashes, No breakdown, No significant lesion, No tenderness/swelling, No erythema, No warmth, No cyanosis Neurological: Normal gait, Normal strength at 5/5 x4 extr, Normal tone, Sensation intact, Cranial nerves 3-12 intact, Normal reflexes 2+, Normal affect Lymphatics: No axilla or inguinal lymphadenopathy - Studies Laboratory Data (last 24 hrs) 07/30/25 07/30/25 22:30 22:30 WBC 6.10 Hgb 13.4 L Hct 38.1 L Plt Count 259 Sodium 131 L Potassium 3.5 BUN 7 Creatinine 1.13 Glucose 493 H* <EarlNeo - Last Filed: 07/31/25 03:05> Male Exam - Male Exam Inguinal exam: No hernias <Neo Elliott - Last Filed: 07/31/25 03:05> Assessment and Plan - Plan Patient is a pleasant 40-year-old male, admitted to inpatient with diagnosis of sepsis due to wasp sting to his left scalp. (1)Sepsis due to wasp sting. Patient initial lactic 2.3, and bandemia. Patient also has associated fever and chills with generalized weakness. - Zosyn 3.375 g IV every 8 hours. -IV NS at 125 mL/ hr. .-Follow-up lactic acid. (2)Type 2 diabetes mellitus. Patient recently diagnosed with type 2 diabetes melitis. Patient significant other present at bedside she states patient last A1c was 15. -Held patient metformin at this time, patient received contrast with CT of the scalp. -Order ACHS with moderate sliding scale. -Order insulin 10 units Lantus daily since patient metformin is held at this time. (3)Nonproductive cough. Patient have had nonproductive cough for a week. -Order chest x-ray to rule out pneumonia or other pathological disease. (4)Pain left knee. Patient states he sustained an injury to his left knee about a week ago, states it has been hurting since then. -Order for three-view left knee x-ray. (5)Explained the entire treatment plan to the patient, and significant other present at the bedside, solicited questions answered and voiced understanding. Discharge Plan: Home Plan to discharge in: Greater than 2 days - Advance Directives Does patient have a Living Will: No Does patient have a Durable POA for Healthcare: No - Code Status/Comfort Care Code Status Assessed: Yes Code Status: Full Code Critical Care: No Time Spent Managing Pts Care (In Minutes): 55 <Neo Elilott - Last Filed: 07/31/25 03:05> Date of Service: 07/31/25 Patient was seen and examined. Events of the last 24 hours have been noted. Spoke with with PAVAN regarding patient's clinical picture after evaluating and examining the patient independently. I performed a substantial part of the MDM during this patient's care today. I personally made or approved the documented management plan and acknowledge its risk of complications. I agree with the findings and documentation provided in the PAVAN's notes. <Emma Ott - Last Filed: 08/04/25 12:38>
[2025-07-31] MEDS: NA CHLORIDE 0.9% 1,000 ML IV SCH (03:00)
[2025-07-31 03:13] LABS: Urine Microscopic Reflex YN NO UMIC
[2025-07-31 03:53] VITALS: BMI 26.6
--- NOTE | 2025-07-31 05:13 | RAD REPORT ---
Procedure description: XR KNEE 3 VIEWS LEFT HISTORY: Pain left knee COMPARISON: None Findings: Left knee: 3 views Large area of osteochondritis involving the central aspect of the medial femoral condyle measuring ap proximately 1.9 cm in length and 6 mm in depth. No abnormal joint effusion. No acute fracture or malalignment. Impression: Osteochondritis of the medial femoral condyle. Electronically signed by: Guy Mcginnis MD 07/31/2025 03:53 AM CDT RP Due to temporary technical issues with the PACS/[employer] reporting system, reports are being etienne d by the in-house radiologist without review as a courtesy to ensure prompt reporting the interpreting radiologist is fully responsible for the content of the report. Transcribed Date/Time: 07/31/2025 5:13 AM
--- NOTE | 2025-07-31 05:13 | RAD REPORT ---
EXAM DESCRIPTION: Chest Single View CLINICAL HISTORY: cough, and Fever COMPARISON: None TECHNIQUE: Single AP view of the chest. FINDINGS: Lung volumes adequate. Cardiac silhouette is normal in size. No pneumothorax. No large pleural effusion. Subtle patchy airspace disease in the left upper lobe. No acute bony finding. IMPRESSION: Subtle patchy airspace disease in the left upper lobe, concerning for pneumonia. Electronically signed by: Ariana Benton MD 07/31/2025 03:41 AM CDT RP TYG Due to temporary technical issues with the PACS/[employer] reporting system, reports are being etienne d by the in-house radiologist without review as a courtesy to ensure prompt reporting the interpreting radiologist is fully responsible for the content of the report. Transcribed Date/Time: 07/31/2025 5:13 AM
[2025-07-31] MEDS ORDERED: NA CHLORIDE 0.9% 1,000 ML ONE (06:20)
[2025-07-31] MEDS ORDERED: POTASSIUM CL SA 10 MEQ TAB PO ONE (07:18)
[2025-07-31] MEDS: POTASSIUM CL SA 10 MEQ TAB PO ONE (07:32)
[2025-07-31] MEDS: INSULIN REGULAR (HUMAN) 100 UNIT/ML SQ SCH (07:41)
[2025-07-31] MEDS: FLU (Fluarix) 25-26 (6MOS UP)/PF 45 MCG/0.5 ML Syringe IM ONE (08:15)
[2025-07-31] MEDS ORDERED: ENOXAPARIN 40 MG/0.4 ML SQ ONE (09:09)
[2025-07-31] MEDS ORDERED: PIPERACIL/TAZO 3.375 GM VIAL IV ONE (09:10)
[2025-07-31] MEDS ORDERED: NA CHLORIDE 0.9% 100 ML ONE (09:10)
[2025-07-31] MEDS: ENOXAPARIN 40 MG/0.4 ML SQ SCH (09:35)
[2025-07-31] MEDS: PIPER TAZO 3.375 GM in NA CHLORIDE 0.9% 100 ML IV SCH ×2 (09:35→16:39)
[2025-07-31 14:43] VITALS: O2SAT 98
[2025-07-31] MEDS: METHYLPREDNISOLONE 125 MG INJ IV ONE (16:34)
[2025-07-31] MEDS: ACETAMINOPHEN 325 MG TABLET PO PRN (16:35)
[2025-07-31] MEDS: METHYLPREDNISOLONE 40 MG INJ IV SCH (16:46)
[2025-07-31 17:14] VITALS: BP 123/63
[2025-07-31 18:13] VITALS: TEMP 98.5
== END 2025-07-31 19:15 | disposition home or self-care (01) ==
LOC: ER 21:17 → ERHOLD 07-31 02:32 → INTOOBSV 07-31 02:32 → 4TH 07-31 07:55 → ERHOLD 07-31 08:42 → 2ND 07-31 13:30
PROVIDERS: ADMIT Hospitalist; ATTEND Hospitalist
DX: A41.89 Other specified sepsis (principal); S00.06XA Insect bite (nonvenomous) of scalp, initial encounter; R53.1 Weakness; E11.9 Type 2 diabetes mellitus without complications; R05.9 Cough, unspecified; M25.562 Pain in left knee; F17.290 Nicotine dependence, other tobacco product, uncomplicated; D72.825 Bandemia; W57.XXXA Bitten or stung by nonvenomous insect and other nonvenomous arthropods, initial encounter; Y93.9 Activity, unspecified; Y92.9 Unspecified place or not applicable; Z11.52 Encounter for screening for COVID-19
CPT/HCPCS: 96365; 96368; 87040 ×2; 85025; 80048; 36415; 82947 ×4; 83605 ×2; 81003; 70460; 71045; 73562; 96375; 96372; 99285; 96366; 87428; Q9967; J2543 ×2; J1650; J2919; J2405; J0696; J1815 ×4; J7030 ×3; G0378 ×3; J1885